=== PATIENT | male | born 1960 | race Caucasian/White ===

== ENCOUNTER → 2017-08-23 | Outpatient (CLI) | payer BC ==
[~2017-08-23] MED LIST: ASPI-1441 PO; CEP500 PO; HYDR-385 PO; KET10 PO; MOX400 PO
--- NOTE | 2017-08-23 16:10 | RADIOLOGY IMAGING REPORT ---
FACILITY: [facility] PATIENT NAME: Andi Pradhan : 1960 MR: [id number] V: [id number] EXAM DATE: ORDERING PHYSICIAN: EMELY CHAUDHARI TECHNOLOGIST: Location: [facility] Patient: Andi Pradhan : 1960 Visit/Account:[id number] Date of Sevice: 08/23/2017 CHEST W/O CONTRAST HISTORY: Follow-up pulmonary nodules TECHNIQUE: CT imaging was obtained through the chest without intravenous contrast. One of the DAXKO dose optimization techniques was utilized in the performance of this exam: automated exposure co ntrol; adjustment of the mA and/or kv according to patient size; or use of iterative reconstruction t echnique. Specific details can be referenced in the facility's radiology CT exam operational policy. CONTRAST: None COMPARISON: CT chest 08/22/2016 FINDINGS: CHEST: Lower neck: Negative. Vessels: Negative Heart and pericardium: Negative. Mediastinum/hilum/lymph nodes: Negative. Lungs/pleura: Stable 3-4 mm right middle lobe pulmonary nodule (series 4 image 321). Stable nodule in the right minor fissure consistent with a intrapulmonary lymph node. Stable left lower lobe pulmo nary nodules measuring up to 2-3 mm. No new nodule. No pleural effusion. No central endobronchial lesion or bronchiectasis. Upper abdomen: Negative. Bones/soft tissues: Negative. IMPRESSION: 1. Stable noncalcified pulmonary nodules measuring up to 3-4 mm. No new nodule. Nodules have remai jacki stable for one year. No additional follow-up recommended according to Fleischner Society guideli simón. Report Dictated By: Juan Ugarte MD at 08/23/2017 3:55 PM Report E-Signed By: Juan Ugarte MD at 08/23/2017 4:06 PM [id number]
== END ==
LOC: CT 00:43
PROVIDERS: ATTEND Internal Medicine
DX: R91.8 Other nonspecific abnormal finding of lung field (principal)
CPT/HCPCS: 71250